=== PATIENT | male | born 1965 | race Caucasian/White ===

== ENCOUNTER 2021-07-26 07:15 | Emergency (ER) | payer OTHER ==
[~2021-07-26] VITALS: Ht 172.7 cm; Wt 81.7 kg
[2021-07-26 08:03] LABS: BASOPHILS ABSOLUTE AUTO 0.05 K/mm3 (0.00-0.23); BASOPHILS PERCENT AUTO 0 % (0-2); EOSINOPHILS ABSOLUTE AUTO 0.16 K/mm3 (0.00-0.68); EOSINOPHILS PERCENT AUTO 1 % (0-6); Hematocrit 41.3 % (37.0-53.0); Hemoglobin 14.4 g/dL (13.5-17.5); IMMATURE GRAN ABSOLUTE AUTO 0.04 K/mm3 (0.00-0.10); IMMATURE GRAN PERCENT AUTO 0 % (0-1); LYMPHOCYTES ABSOLUTE AUTO 1.85 K/mm3 (0.84-5.20); LYMPHOCYTES PERCENT AUTO 16 % (21-46); MONOCYTES ABSOLUTE AUTO 0.88 K/mm3 (0.16-1.47); MONOCYTES PERCENT AUTO 8 % (4-13); Mean Corpuscular HGB 32.4 pg (26.0-34.0); Mean Corpuscular HGB Conc 34.9 g/dL (31.5-36.5); Mean Corpuscular Volume 93 fL (80-100); Mean Platelet Volume 10.3 fL (9.1-12.4); NEUTROPHILS PERCENT AUTO 74 % (41-73); Platelet Count 257 K/mm3 (150-400); RDW Coefficient Variation 13.2 % (11.7-14.2); RDW Standard Deviation 45.3 fL (35.1-46.3); Red Blood Cell Count 4.44 M/mm3 (4.30-5.90); White Blood Cell Count 11.28 K/mm3 (4.00-11.30)
[2021-07-26 08:25] LABS: Alanine Aminotransfer (ALT/SGP 38 U/L (12-78); Albumin, Blood 4.5 g/dL (3.4-5.0); Albumin/Globulin Ratio 1.3 (0.8-1.8); Alk Phos 92 U/L (50-136); Anion Gap 13 mmol/L (6-16); Aspartate Aminotrans (AST/SGOT 21 U/L (12-37); Bilirubin, Total 0.7 mg/dL (0.1-1.0); Blood Urea Nitrogen 16 mg/dL (8-24); Bun/Creatinine Ratio 14.3 (12.0-20.0); CO2, Blood 22 mmol/L (21-32); Calcium, Blood 9.1 mg/dL (8.5-10.1); Chloride, Blood 103 mmol/L (98-108); Creatinine, Blood 1.12 mg/dL (0.60-1.20); Globulin, Blood 3.5 g/dL (2.2-4.0); Glomerular Filtration Rate >60 (60-); Glucose, Blood 192 mg/dL (70-99); Potassium, Blood 3.2 mmol/L (3.5-5.5); Sodium, Blood 138 mmol/L (136-145)
[2021-07-26 09:56] LABS: Appearance, Urine Clear (Clear); Bilirubin, Urine Neg (Neg); Blood, Urine 5+ (Neg); Glucose Qualitative, Urine 3+ (Neg); Ketones, Urine 3+ (Neg); Leukocyte Esterase, Urine Neg (Neg); Nitrite, Urine Neg (Neg); Protein, Urine 1+ (Neg); Specific Gravity, Urine 1.015 (1.003-1.022); Urobilinogen, Urine NORM (Normal)
[2021-07-26 10:21] LABS: Color, Urine Pale Yellow (P-Yellow)
[2021-07-26 10:24] LABS: Bacteria Not Seen /hpf; Red Blood Cells, Urine 25-50 /hpf (0-2); Squamous Epithelial Cells Not Seen /hpf (Few); White Blood Cells, Urine Not Seen /hpf (0-5)
[2021-07-26 13:30] LABS: International Normalized Ratio 1.01; Prothrombin Time Results 10.9 Sec (9.7-11.5)
[2021-07-26] MEDS ORDERED: Roxicodone5 MG PO (13:51)
[2021-07-26] MEDS ORDERED: CEFD300 PO (13:51)
[2021-07-26] MEDS ORDERED: IBUP600 PO (13:51)
[2021-07-26 15:47] LABS: U Amphetamine Screen Not Detected; U Barbituate Screen Not Detected; U Benzodiazapine Screen Not Detected; U Buprenorphine Screen Not Detected; U Cannabinoids Screen DETECTED; U Cocaine Screen Not Detected; U Methadone Screen Not Detected; U Methamphetamine Screen Not Detected; U Opiates Screen Not Detected; U Oxycodone Screen Not Detected; U Phencyclidine Screen Not Detected; U Propoxyphene Screen Not Detected
== END 2021-07-26 15:36 | disposition home or self-care (01) ==
LOC: ER 07:15
PROVIDERS: Emergency Medicine; Nurse Practitioner Acute Care; Physician Assistant
DX: N13.6 Pyonephrosis (principal); R74.8 Abnormal levels of other serum enzymes
CPT/HCPCS: 36415; 74177; 80053; 81001; 83690; 84145; 85025; 85610; 85730; 87040; 96361; 96365-59; 96375; 99285-25; A9270; J1170; J1885; J2405; J2543; J7120; Q9967

== ENCOUNTER 2021-07-27 03:55 | Emergency (ER) | payer OTHER ==
[~2021-07-27] VITALS: Ht 167.6 cm; Wt 81.7 kg
[~2021-07-27 03:55] MED LIST: CEFD300 PO; IBUP600 PO; Roxicodone5 MG PO
[2021-07-27 04:27] LABS: BASOPHILS ABSOLUTE AUTO 0.05 K/mm3 (0.00-0.23); BASOPHILS PERCENT AUTO 0 % (0-2); EOSINOPHILS ABSOLUTE AUTO 0.06 K/mm3 (0.00-0.68); EOSINOPHILS PERCENT AUTO 0 % (0-6); Hematocrit 40.1 % (37.0-53.0); IMMATURE GRAN ABSOLUTE AUTO 0.06 K/mm3 (0.00-0.10); IMMATURE GRAN PERCENT AUTO 0 % (0-1); LYMPHOCYTES ABSOLUTE AUTO 1.86 K/mm3 (0.84-5.20); LYMPHOCYTES PERCENT AUTO 13 % (21-46); MONOCYTES ABSOLUTE AUTO 1.05 K/mm3 (0.16-1.47); MONOCYTES PERCENT AUTO 7 % (4-13); Mean Corpuscular HGB 32.6 pg (26.0-34.0); Mean Corpuscular HGB Conc 34.9 g/dL (31.5-36.5); Mean Corpuscular Volume 93 fL (80-100); Mean Platelet Volume 10.2 fL (9.1-12.4); NEUTROPHILS ABSOLUTE AUTO 11.17 K/mm3 (1.96-9.15); NEUTROPHILS PERCENT AUTO 78 % (41-73); Platelet Count 225 K/mm3 (150-400); RDW Coefficient Variation 13.6 % (11.7-14.2); RDW Standard Deviation 46.2 fL (35.1-46.3); White Blood Cell Count 14.25 K/mm3 (4.00-11.30)
[2021-07-27 04:38] LABS: Alanine Aminotransfer (ALT/SGP 36 U/L (12-78); Albumin, Blood 4.2 g/dL (3.4-5.0); Albumin/Globulin Ratio 1.2 (0.8-1.8); Alk Phos 81 U/L (50-136); Anion Gap 9 mmol/L (6-16); Aspartate Aminotrans (AST/SGOT 24 U/L (12-37); Bilirubin, Total 0.7 mg/dL (0.1-1.0); Blood Urea Nitrogen 14 mg/dL (8-24); Bun/Creatinine Ratio 11.7 (12.0-20.0); CO2, Blood 23 mmol/L (21-32); Chloride, Blood 104 mmol/L (98-108); Globulin, Blood 3.4 g/dL (2.2-4.0); Glomerular Filtration Rate >60 (60-); Glucose, Blood 134 mg/dL (70-99); Potassium, Blood 3.9 mmol/L (3.5-5.5); Sodium, Blood 136 mmol/L (136-145); Total Protein, Blood 7.6 g/dL (6.4-8.2)
[2021-07-27 06:55] LABS: SARS-Cov-2 (COVID-19) PCR, MMC NEGATIVE (NEGATIVE)
== END 2021-07-27 10:13 | disposition short-term general hospital (02) ==
LOC: ER 03:55
PROVIDERS: Emergency Medicine
DX: A41.9 Sepsis, unspecified organism (principal); N13.6 Pyonephrosis; Z20.822 Contact with and (suspected) exposure to COVID-19
CPT/HCPCS: 36415; 80053; 83605; 85025; 96361; 96365; 96375; 99284-25; J0696; J1170; J1885; J2405; J7120; U0004

== ENCOUNTER 2021-08-02 17:23 | Emergency (ER) | payer OTHER ==
[2021-08-02] MEDS ORDERED: CYCL10 PO (22:24)
[2021-08-02] MEDS ORDERED: TAMS.4ER (22:24)
== END 2021-08-02 19:01 | disposition left against medical advice (07) ==
LOC: ER 17:23
DX: Z53.21 Procedure and treatment not carried out due to patient leaving prior to being seen by health care provider (principal)

== ENCOUNTER 2021-08-02 21:32 | Emergency (ER) | payer OTHER ==
[~2021-08-02] VITALS: Ht 167.6 cm; Wt 81.7 kg
[2021-08-02] MEDS ORDERED: CYCL10 PO (22:24)
[2021-08-02] MEDS ORDERED: TAMS.4ER (22:24)
== END 2021-08-02 22:31 | disposition left against medical advice (07) ==
LOC: ER 21:32
DX: Z53.21 Procedure and treatment not carried out due to patient leaving prior to being seen by health care provider (principal)

== ENCOUNTER 2021-08-04 23:29 | Emergency (ER) | payer OTHER ==
[~2021-08-04] VITALS: Ht 167.6 cm; Wt 74.4 kg
[~2021-08-04 23:29] MED LIST changes: +CYCL10 PO; +TAMS.4ER
[2021-08-04 23:56] LABS: BASOPHILS ABSOLUTE AUTO 0.03 K/mm3 (0.00-0.23); BASOPHILS PERCENT AUTO 0 % (0-2); EOSINOPHILS ABSOLUTE AUTO 0.01 K/mm3 (0.00-0.68); EOSINOPHILS PERCENT AUTO 0 % (0-6); Hemoglobin 15.6 g/dL (13.5-17.5); IMMATURE GRAN ABSOLUTE AUTO 0.08 K/mm3 (0.00-0.10); IMMATURE GRAN PERCENT AUTO 1 % (0-1); LYMPHOCYTES ABSOLUTE AUTO 1.64 K/mm3 (0.84-5.20); LYMPHOCYTES PERCENT AUTO 13 % (21-46); MONOCYTES ABSOLUTE AUTO 1.08 K/mm3 (0.16-1.47); MONOCYTES PERCENT AUTO 9 % (4-13); Mean Corpuscular HGB 32.3 pg (26.0-34.0); Mean Corpuscular HGB Conc 36.3 g/dL (31.5-36.5); Mean Corpuscular Volume 89 fL (80-100); Mean Platelet Volume 10.3 fL (9.1-12.4); NEUTROPHILS ABSOLUTE AUTO 9.48 K/mm3 (1.96-9.15); NEUTROPHILS PERCENT AUTO 77 % (41-73); Platelet Count 325 K/mm3 (150-400); RDW Coefficient Variation 12.6 % (11.7-14.2); RDW Standard Deviation 41.1 fL (35.1-46.3); Red Blood Cell Count 4.83 M/mm3 (4.30-5.90); White Blood Cell Count 12.32 K/mm3 (4.00-11.30)
[2021-08-05 00:11] LABS: Alanine Aminotransfer (ALT/SGP 33 U/L (12-78); Albumin, Blood 4.2 g/dL (3.4-5.0); Alk Phos 85 U/L (50-136); Anion Gap 12 mmol/L (6-16); Aspartate Aminotrans (AST/SGOT 25 U/L (12-37); Bilirubin, Total 0.7 mg/dL (0.1-1.0); Blood Urea Nitrogen 24 mg/dL (8-24); Bun/Creatinine Ratio 15.5 (12.0-20.0); CO2, Blood 22 mmol/L (21-32); Chloride, Blood 97 mmol/L (98-108); Creatinine, Blood 1.55 mg/dL (0.60-1.20); Globulin, Blood 4.3 g/dL (2.2-4.0); Glomerular Filtration Rate 47 (60-); Glucose, Blood 128 mg/dL (70-99); Potassium, Blood 3.2 mmol/L (3.5-5.5); Sodium, Blood 131 mmol/L (136-145); Total Protein, Blood 8.5 g/dL (6.4-8.2); Troponin I <0.015 ng/mL (0.000-0.040)
[2021-08-05 01:47] LABS: Source, Urine Clean Catch
[2021-08-05 01:50] LABS: Bilirubin, Urine Neg (Neg); Blood, Urine 2+ (Neg); Glucose Qualitative, Urine Neg (Neg); Ketones, Urine 3+ (Neg); Leukocyte Esterase, Urine Neg (Neg); Nitrite, Urine Neg (Neg); Urobilinogen, Urine NORM (Normal)
[2021-08-05 02:11] LABS: Color, Urine Yellow (P-Yellow)
[2021-08-05 02:12] LABS: Appearance, Urine Clear (Clear)
[2021-08-05 02:13] LABS: White Blood Cells, Urine 0-2 /hpf (0-5)
[2021-08-05 02:18] LABS: Bacteria Not Seen /hpf; Red Blood Cells, Urine 0-2 /hpf (0-2); Squamous Epithelial Cells Not Seen /hpf (Few)
[2021-08-05 02:19] LABS: Amorphous Light (0-Heavy); WBC Cast 0-2 /lpf (0)
[2021-08-05] MEDS ORDERED: PROM25 PO (03:49)
[2021-08-05 19:17] LABS: Protein, Urine 1+ (Neg)
== END 2021-08-05 04:30 | disposition home or self-care (01) ==
LOC: ER 23:29
PROVIDERS: Emergency Medicine
DX: R10.9 Unspecified abdominal pain (principal)
CPT/HCPCS: 74177; 80053; 81001; 83690; 84484; 85025; 93005; 93010; 96361; 96374; 96375; 99285-25; A9270; J1170; J2405; J2550; J7120; Q9967

== ENCOUNTER 2022-07-18 07:37 | Day surgery (SDC) | payer OTHER ==
[~2022-07-18] VITALS: Ht 167.6 cm; Wt 82.1 kg
[~2022-07-18 07:37] MED LIST changes: +ALBU90OI INH; +PROM25 PO; +VITAMIN D310 MC4 PO; +Vitamin C100 M1 PO
[2022-07-18] MEDS ORDERED: Norco 5-325 Ta1 EACH PO (08:10)
--- NOTE | 2022-07-18 09:52 | NUR ---
History, Chart, Medications and Allergies reviewed before start of procedure.Lungs clear T/O to Auscultation. Patient confirms NPO status and agrees with scheduled surgery. Pre-Op teaching done. Pt verbalizes understanding. [id number] med student Jesus, following Dr Zhang,interviews pt.
--- NOTE | 2022-07-18 13:00 | NUR ---
PT TO ROOM 216 AT THIS TIME. DRESSING CDI. PT C/O PAIN IN HIS BACK AND HIP.
--- NOTE | 2022-07-18 17:15 | NUR ---
SHIFT SUMMARY PT S/P FOR L TOTAL HIP. PT IN A LOT OF PAIN POST OP AND TREATED PER EMR. PAIN IS CURRENTLY TOLERABLE AT 02/02. PT WORKED WITH PHYSICAL THERAPY AND DID WELL. HE WAS ABLE TO AMBULATE AND VOID. TOLERATING PO. VSS.
[2022-07-19 05:28] LABS: BASOPHILS ABSOLUTE AUTO 0.02 K/mm3 (0.00-0.23); BASOPHILS PERCENT AUTO 0 % (0-2); EOSINOPHILS PERCENT AUTO 0 % (0-6); Hematocrit 34.5 % (37.0-53.0); Hemoglobin 11.8 g/dL (13.5-17.5); IMMATURE GRAN PERCENT AUTO 1 % (0-1); LYMPHOCYTES ABSOLUTE AUTO 1.35 K/mm3 (0.84-5.20); LYMPHOCYTES PERCENT AUTO 8 % (21-46); MONOCYTES PERCENT AUTO 9 % (4-13); Mean Corpuscular HGB 32.2 pg (26.0-34.0); Mean Corpuscular HGB Conc 34.2 g/dL (31.5-36.5); Mean Corpuscular Volume 94 fL (80-100); Mean Platelet Volume 10.4 fL (9.1-12.4); NEUTROPHILS ABSOLUTE AUTO 14.58 K/mm3 (1.96-9.15); NEUTROPHILS PERCENT AUTO 83 % (41-73); Platelet Count 231 K/mm3 (150-400); RDW Coefficient Variation 13.7 % (11.7-14.2); RDW Standard Deviation 47.2 fL (35.1-46.3); Red Blood Cell Count 3.66 M/mm3 (4.30-5.90); White Blood Cell Count 17.65 K/mm3 (4.00-11.30)
[2022-07-19 06:14] LABS: Bun/Creatinine Ratio 17.8 (12.0-20.0); Calcium, Blood 8.8 mg/dL (8.5-10.1); Creatinine, Blood 0.9 mg/dL (0.60-1.20); Potassium, Blood 4.2 mmol/L (3.5-5.5)
--- NOTE | 2022-07-19 06:24 | NUR ---
SHIFT SUMMARY PT POD 0 LEFT HIP. PT HAS DONE FAIRLY WELL OVERNIGHT, INTERMITTENT PAIN RELIEVED WITH MEDS PER EMAR. HE HAS BEEN UP AND AMBULATING TO AND FROM THE BATHROOM WITH FWW. HE IS USING POLAR PACK. HE DENIES N/T IN AFFECTED EXT. DRESSING IS C/D/I. POST OP VITALS STABLE. POST OP ABX INFUSED. [employer] ATTEMPTED TO GET PT UP IN CHAIR THIS AM, BUT PT WAS UNABLE TO TOLERATE AND ASKED TO BE BROUGHT BACK TO BED. NO OTHER CHANGES OVERNIGHT. BED IN LOWEST POSITION, CALL LIGHT WITHIN REACH.
[2022-07-19] MEDS ORDERED: Norco 5-325 Ta1 EACH PO (10:27)
--- NOTE | 2022-07-19 16:50 | NUR ---
DISCHARGE: PT COMPLETED THERAPY. DC PACKET PRINTED AND PT EDUCATED. IV DC'D WNL. PT GIVEN ABD PAD AND TAPE TO TAKE HOME. PT REPORTS THAT HE HAS ASPIRIN AT HOME, NO MEDS NEEDED FAXED. PT LEFT UNIT AT ABOUT 1500 VIA WHEELCHAIR WITH AND TRENTON GONZALEZ.
== END 2022-07-19 14:45 | disposition home or self-care (01) ==
LOC: ORSCMMR 07:37 → ORD 09:15 → SURS 12:57 → ORSCMMR 07-19 14:45 → ORD 07-25 07:30
PROVIDERS: Orthopaedic Surgery
PROC: 0SRB0JA Replacement of Left Hip Joint with Synthetic Substitute, Uncemented, Open Approach (ICD-10-PCS; principal; 2022-07-18 09:15)
DX: M16.12 Unilateral primary osteoarthritis, left hip (principal); Z87.891 Personal history of nicotine dependence; F32.A Depression, unspecified; K21.9 Gastro-esophageal reflux disease without esophagitis; Z79.899 Other long term (current) drug therapy
CPT/HCPCS: 36415; 72170; 80048; 85025; 94760; 97110; 97116; 97162; 97530; A9270; C1776; J0171; J0360; J0690; J0735; J1100; J1170; J1885; J2250; J2405; J2704; J2795; J3010; J7120

== ENCOUNTER → 2022-08-08 | Outpatient (CLI) | payer OTHER ==
[~2022-08-08] MED LIST changes: +Norco 5-325 Ta1 EACH PO
== END ==
LOC: LAB SHORT 18:00
DX: R82.998 Other abnormal findings in urine (principal)